=== PATIENT | male | born 1995 | race Caucasian/White ===

== ENCOUNTER 2018-06-26 19:44 | Emergency (ER) | payer OTHER | END 2018-06-26 22:16 | disposition home or self-care (01) | LOC: M ED 19:44 | DX: Z04.6 Encounter for general psychiatric examination, requested by authority (principal); J45.909 Unspecified asthma, uncomplicated | CPT/HCPCS: 99284 ==

== ENCOUNTER 2019-01-13 10:32 | Emergency (ER) | payer OTHER ==
[~2019-01-13] VITALS: Ht 182.9 cm; Wt 109.1 kg
[2019-01-13 11:28] LABS: INFLUENZA A AMPLIFICATION POSITIVE (NEGATIVE); INFLUENZA B AMPLIFICATION NEGATIVE (NEGATIVE)
[2019-01-13] MEDS ORDERED: OSEL75CA PO (11:55)
[2019-01-13 12:01] VITALS: BP 135/68
== END 2019-01-13 12:05 | disposition home or self-care (01) ==
LOC: M ED 10:32
DX: J09.X2 Influenza due to identified novel influenza A virus with other respiratory manifestations (principal)